=== PATIENT | female | born 1970 | race Caucasian/White ===

== ENCOUNTER → 2016-04-06 | Outpatient (CLI) | payer BC ==
[~2016-04-06] MED LIST: ALLEGRA-D 12 HO1 TER PO; AMOXICILLIN 8751 TAB PO; ASPIRIN 81M81 MG/TA2 PO; BRILINTA90 MG PO; CAL-CITRATE PLU1 TAB PO; CELEXA10 MG PO; CHANTIX 1MG1 MG PO; EFFEXOR XR75 MG/CAP PO; FISH OIL1000 MG PO; FLEXERIL5 MG PO; KLONOPIN 0.5MG0.5 MG PO; LAMICTAL 100MG100 MG PO; LIPITOR 40MG TA40 MG PO; LIPITOR 80MG80 MG PO; LOPRESSOR 225 MG/TAB PO; LOPRESSOR 550 MG/TAB PO; PAIN RELIEF AD200 MG PO; PRILOSEC 20MG20 MG PO; VITAMINC1000TA; WELLBUTRIN 75MG75 MG PO; WELLBUTRIN SR150 M1 PO
== END ==
LOC: BHSO 15:46
DX: F33.1 Major depressive disorder, recurrent, moderate (principal)

== ENCOUNTER → 2016-04-22 | Outpatient (CLI) | payer BC | LOC: BHSO 15:43 | DX: F33.2 Major depressive disorder, recurrent severe without psychotic features (principal) ==

== ENCOUNTER → 2016-05-05 | Outpatient (CLI) | payer BC | LOC: BHSO 16:14 | DX: F33.1 Major depressive disorder, recurrent, moderate (principal) ==

== ENCOUNTER → 2016-05-07 | Outpatient (CLI) | payer BC | LOC: BHSO 15:50 | DX: F33.2 Major depressive disorder, recurrent severe without psychotic features (principal) ==

== ENCOUNTER → 2016-05-21 | Outpatient (CLI) | payer BC | LOC: BHSO 15:55 | DX: F33.1 Major depressive disorder, recurrent, moderate (principal) ==

== ENCOUNTER → 2016-06-04 | Outpatient (CLI) | payer BC | LOC: BHSO 15:48 | DX: F33.2 Major depressive disorder, recurrent severe without psychotic features (principal) ==

== ENCOUNTER → 2016-06-18 | Outpatient (CLI) | payer BC | LOC: BHSO 15:52 | DX: F33.1 Major depressive disorder, recurrent, moderate (principal) ==

== ENCOUNTER → 2016-06-28 | Outpatient (CLI) | payer BC | LOC: BHSO 15:50 | DX: F33.1 Major depressive disorder, recurrent, moderate (principal) ==

== ENCOUNTER → 2016-07-02 | Outpatient (CLI) | payer BC | LOC: BHSO 15:52 | DX: F33.0 Major depressive disorder, recurrent, mild (principal) ==

== ENCOUNTER → 2016-07-16 | Outpatient (CLI) | payer BC | LOC: BHSO 15:51 | DX: F33.1 Major depressive disorder, recurrent, moderate (principal) ==

== ENCOUNTER → 2016-08-13 | Outpatient (CLI) | payer BC | LOC: BHSO 15:55 | DX: F33.1 Major depressive disorder, recurrent, moderate (principal) ==

== ENCOUNTER 2016-08-23 10:20 | Emergency (ER) | payer BC ==
[~2016-08-23] VITALS: Ht 160 cm; Wt 100.0 kg
[~2016-08-23 10:20] MED LIST changes: -AMOXICILLIN 8751 TAB PO; -LAMICTAL 100MG100 MG PO
[2016-08-23 10:31] VITALS: TEMP 98.3
[2016-08-23 11:01] LABS: BASO # 0.1 (0.0-0.2); BASO % 0.6 % (0.0-2.0); EOS # 0.2 (0.0-0.7); EOS % 1.4 % (0-4.0); GRAN # 10.8 (1.4-6.5); GRAN % 74.2 % (42.2-75.2); HEMATOCRIT 42.2 % (37.0-47.0); HEMOGLOBIN 14.1 g/dl (12.5-16.0); LYMPH # 2.9 (1.2-3.4); LYMPH % 19.7 % (20.0-51.0); MEAN CELL VOLUME 90 fl (80.0-100.0); MEAN CORPUSCULAR HEMOGLOBIN 30 pg (27.0-31.0); MEAN CORPUSCULAR HGB CONC 33 g/dl (33.0-37.0); MEAN PLATELET VOLUME 10.5 fl (7.4-10.4); MONO # 0.6 (0.1-0.6); MONO % 3.8 % (1.7-9.3); PLATELET COUNT 263 K/mm3 (130-400); RED BLOOD COUNT 4.67 M/mm3 (4.10-5.30); REDCELL DISTRIBUTION WIDTH-CV 13.2 % (11.5-14.5); WHITE BLOOD COUNT 14.6 K/mm3 (4.8-10.8)
[2016-08-23 11:17] LABS: ALANINE AMINOTRANSFERASE 29 U/L (9-52); ALBUMIN 3.8 gm/dL (3.5-5.0); ALKALINE PHOSPHATASE 92 U/L (50-136); ANION GAP 11 mmol/L (7-16); BILIRUBIN,TOTAL 0.5 mg/dL (0.0-1.0); BLOOD UREA NITROGEN 10 mg/dL (7-17); CALCIUM 8.8 mg/dL (8.4-10.2); CARBON DIOXIDE 25 mmol/L (22-30); CHLORIDE 102 mmol/L (98-107); CREATININE, serum 0.75 mg/dL (0.52-1.25); GLUCOSE 102 mg/dL (74-106); LIPASE 91 U/L (23-300); POTASSIUM 4.1 mmol/L (3.4-5.0); SODIUM 138 mmol/L (137-145)
[2016-08-23 11:39] LABS: TROPONIN-I < 0.012 ng/mL (0.000-0.034)
[2016-08-23 12:06] VITALS: BP 119/68; PULSE 90
== END 2016-08-23 12:08 | disposition home or self-care (01) ==
LOC: COL.ER 10:20
PROVIDERS: Emergency Medicine
DX: M25.512 Pain in left shoulder (principal); M79.602 Pain in left arm; I25.2 Old myocardial infarction; I25.10 Atherosclerotic heart disease of native coronary artery without angina pectoris; I11.9 Hypertensive heart disease without heart failure; F17.210 Nicotine dependence, cigarettes, uncomplicated; Z95.5 Presence of coronary angioplasty implant and graft; Z90.710 Acquired absence of both cervix and uterus

== ENCOUNTER 2016-09-22 10:30 | Emergency (ER) | payer OTHER, BC ==
[~2016-09-22] VITALS: Ht 157.5 cm; Wt 95.5 kg
[2016-09-22 10:33] VITALS: BP 101/63; TEMP 98.4
[2016-09-22] MEDS ORDERED: LAMICTAL 100MG100 MG PO (10:38)
[2016-09-22] MEDS ORDERED: AMOXICILLIN 8751 TAB PO (11:54)
[2016-09-22 12:55] VITALS: PULSE 84
== END 2016-09-22 12:56 | disposition home or self-care (01) ==
LOC: COL.ER 10:30
DX: S61.451A Open bite of right hand, initial encounter (principal); S63.91XA Sprain of unspecified part of right wrist and hand, initial encounter; W50.3XXA Accidental bite by another person, initial encounter; X50.9XXA Other and unspecified overexertion or strenuous movements or postures, initial encounter; Y92.129 Unspecified place in nursing home as the place of occurrence of the external cause; Z23 Encounter for immunization; I25.2 Old myocardial infarction; I25.10 Atherosclerotic heart disease of native coronary artery without angina pectoris; Z95.5 Presence of coronary angioplasty implant and graft; F17.210 Nicotine dependence, cigarettes, uncomplicated

== ENCOUNTER → 2016-09-27 | Outpatient (CLI) | payer BC ==
[~2016-09-27] MED LIST changes: +AMOXICILLIN 8751 TAB PO; +LAMICTAL 100MG100 MG PO
== END ==
LOC: BHSO 15:13
DX: F33.1 Major depressive disorder, recurrent, moderate (principal)

== ENCOUNTER → 2016-10-04 | Outpatient (CLI) | payer BC | LOC: MC.RAD 07:00 | DX: Z12.31 Encounter for screening mammogram for malignant neoplasm of breast (principal) ==

== ENCOUNTER 2016-10-06 09:31 | Outpatient (RCR) | payer OTHER | END 2016-12-07 12:54 | LOC: WSOH 09:31 | DX: S60.211A Contusion of right wrist, initial encounter (principal); S93.401A Sprain of unspecified ligament of right ankle, initial encounter; Y04.8XXA Assault by other bodily force, initial encounter; Y99.0 Civilian activity done for income or pay ==

== ENCOUNTER → 2016-10-29 | Outpatient (CLI) | payer OTHER | LOC: BHSO 15:59 | DX: F33.1 Major depressive disorder, recurrent, moderate (principal) ==

== ENCOUNTER → 2016-11-30 | Outpatient (CLI) | payer BC, OTHER | LOC: BHSO 15:55 | DX: F33.1 Major depressive disorder, recurrent, moderate (principal) ==

== ENCOUNTER → 2016-12-13 | Outpatient (CLI) | payer BC, OTHER | LOC: BHSO 16:02 | DX: F33.1 Major depressive disorder, recurrent, moderate (principal) ==

== ENCOUNTER → 2016-12-27 | Outpatient (CLI) | payer BC, OTHER | LOC: BHSO 16:00 | DX: F33.1 Major depressive disorder, recurrent, moderate (principal) ==

== ENCOUNTER → 2016-12-29 | Outpatient (CLI) | payer BC, OTHER | LOC: BHSO 15:24 | DX: F41.1 Generalized anxiety disorder (principal) ==

== ENCOUNTER → 2017-01-14 | Outpatient (CLI) | payer BC, OTHER | LOC: BHSO 16:00 | DX: F33.1 Major depressive disorder, recurrent, moderate (principal) ==

== ENCOUNTER → 2017-01-27 | Outpatient (CLI) | payer BC, OTHER | LOC: BHSO 16:02 | DX: F33.1 Major depressive disorder, recurrent, moderate (principal) ==

== ENCOUNTER → 2017-02-15 | Outpatient (CLI) | payer BC, OTHER | LOC: BHSO 15:23 | DX: F41.1 Generalized anxiety disorder (principal) ==

== ENCOUNTER → 2017-02-18 | Outpatient (CLI) | payer BC, OTHER | LOC: BHSO 16:03 | DX: F33.1 Major depressive disorder, recurrent, moderate (principal) ==

== ENCOUNTER → 2017-03-08 | Outpatient (CLI) | payer BC, OTHER | LOC: BHSO 16:01 | DX: F33.1 Major depressive disorder, recurrent, moderate (principal) ==

== ENCOUNTER → 2017-03-21 | Outpatient (CLI) | payer BC, OTHER | LOC: BHSO 16:00 | DX: F33.1 Major depressive disorder, recurrent, moderate (principal) ==

== ENCOUNTER → 2017-04-06 | Outpatient (CLI) | payer BC, OTHER | LOC: BHSO 16:02 | DX: F33.1 Major depressive disorder, recurrent, moderate (principal) ==

== ENCOUNTER 2017-04-13 12:12 | Emergency (ER) | payer BC ==
[~2017-04-13] VITALS: Ht 160 cm; Wt 95.5 kg
[2017-04-13 12:21] VITALS: TEMP 97.9
[2017-04-13 16:32] LABS: BASO # 0.1 (0.0-0.2); BASO % 0.7 % (0.0-2.0); EOS # 0.3 (0.0-0.7); EOS % 2.1 % (0-4.0); GRAN # 7.3 (1.4-6.5); GRAN % 59.3 % (42.2-75.2); HEMATOCRIT 44.4 % (37.0-47.0); HEMOGLOBIN 14.6 g/dl (12.5-16.0); LYMPH # 4.1 (1.2-3.4); LYMPH % 33.1 % (20.0-51.0); MEAN CELL VOLUME 91 fl (80.0-100.0); MEAN CORPUSCULAR HEMOGLOBIN 30 pg (27.0-31.0); MEAN CORPUSCULAR HGB CONC 33 g/dl (33.0-37.0); MEAN PLATELET VOLUME 10.1 fl (7.4-10.4); MONO # 0.6 (0.1-0.6); MONO % 4.6 % (1.7-9.3); PLATELET COUNT 298 K/mm3 (130-400); RED BLOOD COUNT 4.88 M/mm3 (4.10-5.30); REDCELL DISTRIBUTION WIDTH-CV 13.2 % (11.5-14.5)
[2017-04-13 16:44] LABS: BILIRUBIN,TOTAL 0.3 mg/dL (0.0-1.0); C-REACTIVE PROTEIN 1.4 mg/dL (0.0-0.9); CALCIUM 9.2 mg/dL (8.4-10.2); CREATININE, serum 0.77 mg/dL (0.52-1.25); TOTAL PROTEIN 7.3 gm/dL (6.4-8.2)
[2017-04-13 16:53] LABS: TROPONIN-I 0.017 ng/mL (0.000-0.034)
[2017-04-13 20:40] VITALS: BP 116/81; PULSE 73
== END 2017-04-13 20:46 | disposition home or self-care (01) ==
LOC: COL.ER 12:12
PROVIDERS: Physician Assistant
DX: M79.602 Pain in left arm (principal); E78.5 Hyperlipidemia, unspecified; I50.9 Heart failure, unspecified; I25.2 Old myocardial infarction; F17.210 Nicotine dependence, cigarettes, uncomplicated; Z95.5 Presence of coronary angioplasty implant and graft; Z79.82 Long term (current) use of aspirin

== ENCOUNTER → 2017-04-29 | Outpatient (CLI) | payer BC | LOC: BHSO 16:02 | DX: F33.1 Major depressive disorder, recurrent, moderate (principal) ==

== ENCOUNTER → 2017-05-13 | Outpatient (CLI) | payer BC | LOC: BHSO 16:08 | DX: F33.1 Major depressive disorder, recurrent, moderate (principal) ==

== ENCOUNTER → 2017-05-20 | Outpatient (CLI) | payer BC | LOC: BHSO 16:04 | DX: F31.81 Bipolar II disorder (principal) | CPT/HCPCS: G0463 ==

== ENCOUNTER → 2017-05-27 | Outpatient (CLI) | payer BC | LOC: BHSO 16:03 | DX: F33.0 Major depressive disorder, recurrent, mild (principal) ==

== ENCOUNTER → 2017-07-01 | Outpatient (CLI) | payer BC | LOC: BHSO 15:59 | DX: F33.1 Major depressive disorder, recurrent, moderate (principal) ==

== ENCOUNTER → 2017-07-15 | Outpatient (CLI) | payer BC | LOC: BHSO 16:00 | DX: F33.1 Major depressive disorder, recurrent, moderate (principal) ==

== ENCOUNTER → 2017-07-26 | Outpatient (CLI) | payer BC | LOC: BHSO 15:59 | DX: F31.81 Bipolar II disorder (principal) | CPT/HCPCS: G0463 ==

== ENCOUNTER → 2017-08-12 | Outpatient (CLI) | payer BC | LOC: BHSO 16:03 | DX: F33.1 Major depressive disorder, recurrent, moderate (principal) ==

== ENCOUNTER → 2017-09-09 | Outpatient (CLI) | payer BC | LOC: BHSO 15:56 | DX: F33.1 Major depressive disorder, recurrent, moderate (principal) ==

== ENCOUNTER → 2017-10-07 | Outpatient (CLI) | payer BC | LOC: BHSO 15:57 | DX: F33.1 Major depressive disorder, recurrent, moderate (principal) ==

== ENCOUNTER → 2017-10-21 | Outpatient (CLI) | payer BC | LOC: BHSO 15:44 | DX: F41.1 Generalized anxiety disorder (principal) ==

== ENCOUNTER → 2017-10-25 | Outpatient (CLI) | payer BC | LOC: BHSO 16:20 | DX: F31.81 Bipolar II disorder (principal) ==

== ENCOUNTER → 2017-11-04 | Outpatient (CLI) | payer BC | LOC: BHSO 16:03 | DX: F41.1 Generalized anxiety disorder (principal) ==

== ENCOUNTER → 2017-11-18 | Outpatient (CLI) | payer BC | LOC: BHSO 16:18 | DX: F33.0 Major depressive disorder, recurrent, mild (principal) ==

== ENCOUNTER → 2017-12-02 | Outpatient (CLI) | payer BC | LOC: BHSO 15:50 | DX: F33.0 Major depressive disorder, recurrent, mild (principal) ==

== ENCOUNTER → 2017-12-16 | Outpatient (CLI) | payer BC | LOC: BHSO 15:59 | DX: F41.1 Generalized anxiety disorder (principal) ==

== ENCOUNTER → 2017-12-30 | Outpatient (CLI) | payer BC | LOC: BHSO 15:59 | DX: F33.1 Major depressive disorder, recurrent, moderate (principal) ==

== ENCOUNTER → 2018-01-12 | Outpatient (CLI) | payer BC | LOC: BHSO 16:00 | DX: F33.0 Major depressive disorder, recurrent, mild (principal) ==

== ENCOUNTER → 2018-01-27 | Outpatient (CLI) | payer BC | LOC: BHSO 16:03 | DX: F33.0 Major depressive disorder, recurrent, mild (principal) ==

== ENCOUNTER → 2018-02-07 | Outpatient (CLI) | payer BC | LOC: MC.RAD 13:19 | DX: N64.89 Other specified disorders of breast (principal); N63.10 Unspecified lump in the right breast, unspecified quadrant | CPT/HCPCS: G0279 ==

== ENCOUNTER → 2018-02-13 | Outpatient (CLI) | payer BC | LOC: MC.RAD 07:00 | DX: N61.1 Abscess of the breast and nipple (principal) ==

== ENCOUNTER → 2018-02-16 | Outpatient (CLI) | payer BC | LOC: BHSO 15:53 | DX: F33.1 Major depressive disorder, recurrent, moderate (principal) ==

== ENCOUNTER → 2018-04-12 | Outpatient (CLI) | payer BC | LOC: BHSO 16:02 | DX: F33.1 Major depressive disorder, recurrent, moderate (principal) ==

== ENCOUNTER → 2018-04-28 | Outpatient (CLI) | payer BC | LOC: BHSO 16:03 | DX: F33.1 Major depressive disorder, recurrent, moderate (principal) ==

== ENCOUNTER → 2018-05-12 | Outpatient (CLI) | payer BC | LOC: BHSO 15:58 | DX: F33.1 Major depressive disorder, recurrent, moderate (principal) ==

== ENCOUNTER → 2018-05-16 | Outpatient (CLI) | payer BC | LOC: BHSO 16:18 | DX: F33.1 Major depressive disorder, recurrent, moderate (principal) | CPT/HCPCS: G0463 ==

== ENCOUNTER → 2018-06-29 | Outpatient (CLI) | payer BC | LOC: BHSO 16:19 | DX: F31.81 Bipolar II disorder (principal) | CPT/HCPCS: G0463 ==

== ENCOUNTER → 2018-06-30 | Outpatient (CLI) | payer BC | LOC: BHSO 15:58 | DX: F33.1 Major depressive disorder, recurrent, moderate (principal) ==

== ENCOUNTER → 2018-07-19 | Outpatient (CLI) | payer BC | LOC: BHSO 16:03 | DX: F33.1 Major depressive disorder, recurrent, moderate (principal) ==

== ENCOUNTER → 2018-08-03 | Outpatient (CLI) | payer BC | LOC: BHSO 10:50 | DX: F33.1 Major depressive disorder, recurrent, moderate (principal) ==

== ENCOUNTER → 2018-08-18 | Outpatient (CLI) | payer BC | LOC: BHSO 16:00 | DX: F33.1 Major depressive disorder, recurrent, moderate (principal) ==

== ENCOUNTER → 2018-09-01 | Outpatient (CLI) | payer BC | LOC: BHSO 16:01 | DX: F33.1 Major depressive disorder, recurrent, moderate (principal) ==

== ENCOUNTER → 2018-09-27 | Outpatient (CLI) | payer BC | LOC: BHSO 09:39 | DX: F31.81 Bipolar II disorder (principal) | CPT/HCPCS: G0463 ==

== ENCOUNTER → 2018-09-29 | Outpatient (CLI) | payer BC | LOC: BHSO 13:02 | DX: F33.2 Major depressive disorder, recurrent severe without psychotic features (principal) ==

== ENCOUNTER → 2018-10-11 | Outpatient (CLI) | payer BC | LOC: BHSO 13:13 | DX: F33.2 Major depressive disorder, recurrent severe without psychotic features (principal) ==

== ENCOUNTER → 2018-10-27 | Outpatient (CLI) | payer BC | LOC: BHSO 15:57 | DX: F33.1 Major depressive disorder, recurrent, moderate (principal) ==

== ENCOUNTER → 2018-11-10 | Outpatient (CLI) | payer BC | LOC: BHSO 16:01 | DX: F33.1 Major depressive disorder, recurrent, moderate (principal) ==

== ENCOUNTER → 2018-11-29 | Outpatient (CLI) | payer BC | LOC: BHSO 12:59 | DX: F31.81 Bipolar II disorder (principal) | CPT/HCPCS: G0463 ==

== ENCOUNTER → 2018-12-11 | Outpatient (CLI) | payer BC | LOC: BHSO 13:02 | DX: F33.2 Major depressive disorder, recurrent severe without psychotic features (principal) ==

== ENCOUNTER → 2018-12-26 | Outpatient (CLI) | payer BC | LOC: BHSO 12:59 | DX: F33.1 Major depressive disorder, recurrent, moderate (principal) ==

== ENCOUNTER 2018-12-29 18:32 | Emergency (ER) | payer BC ==
[~2018-12-29] VITALS: Ht 157.5 cm; Wt 95.9 kg
[2018-12-29 18:37] VITALS: TEMP 98.2
[2018-12-29 18:54] LABS: BASO # 0.1 (0.0-0.2); BASO % 0.5 % (0.0-2.0); EOS # 0.3 (0.0-0.7); EOS % 2.3 % (0-4.0); GRAN # 8.7 (1.4-6.5); GRAN % 59.2 % (42.2-75.2); HEMATOCRIT 44.2 % (37.0-47.0); HEMOGLOBIN 14.6 g/dl (12.5-16.0); LYMPH # 4.6 (1.2-3.4); LYMPH % 31.2 % (20.0-51.0); MEAN CELL VOLUME 92 fl (80.0-100.0); MEAN CORPUSCULAR HEMOGLOBIN 31 pg (27.0-31.0); MEAN CORPUSCULAR HGB CONC 33 g/dl (33.0-37.0); MEAN PLATELET VOLUME 10.4 fl (7.4-10.4); MONO % 6.5 % (1.7-9.3); PLATELET COUNT 284 K/mm3 (130-400); RED BLOOD COUNT 4.79 M/mm3 (4.10-5.30); REDCELL DISTRIBUTION WIDTH-CV 13.1 % (11.5-14.5)
[2018-12-29 19:01] LABS: INR 0.9 (0.8-3.0); PROTHROMBIN TIME 10.2 SECONDS (9.7-12.8)
[2018-12-29 19:06] LABS: ALANINE AMINOTRANSFERASE 13 U/L (9-52); ALBUMIN 4.1 gm/dL (3.5-5.0); ALKALINE PHOSPHATASE 102 U/L (50-136); ANION GAP 10 mmol/L (7-16); AST,SGOT 20 U/L (15-37); BILIRUBIN,TOTAL 0.2 mg/dL (0.0-1.0); BLOOD UREA NITROGEN 9 mg/dL (7-17); CALCIUM 9.1 mg/dL (8.4-10.2); CARBON DIOXIDE 26 mmol/L (22-30); CHLORIDE 102 mmol/L (98-107); CREATININE, serum 0.76 (0.52-1.25); GLUCOSE 83 mg/dL (74-106); LIPASE 68 U/L (23-300); SODIUM 139 mmol/L (137-145); TOTAL PROTEIN 7.3 gm/dL (6.4-8.2)
[2018-12-29 19:20] LABS: TROPONIN-I < 0.012 ng/mL (0.000-0.035)
[2018-12-29 22:30] VITALS: BP 124/79; PULSE 78
== END 2018-12-29 22:45 | disposition home or self-care (01) ==
LOC: COL.ER 18:32
PROVIDERS: Emergency Medicine
DX: I25.10 Atherosclerotic heart disease of native coronary artery without angina pectoris (principal); R07.89 Other chest pain; M54.6 Pain in thoracic spine; Z79.82 Long term (current) use of aspirin
CPT/HCPCS: J7030

== ENCOUNTER → 2019-01-31 | Outpatient (CLI) | payer BC | LOC: BHSO 16:01 | DX: F33.1 Major depressive disorder, recurrent, moderate (principal) ==

== ENCOUNTER 2019-03-07 10:06 | Emergency (ER) | payer SELFPAY ==
[~2019-03-07] VITALS: Ht 160 cm; Wt 102.3 kg
[2019-03-07 10:14] VITALS: BP 119/68; TEMP 97.1
[2019-03-07 11:05] VITALS: PULSE 74
== END 2019-03-07 11:05 | disposition home or self-care (01) ==
LOC: COL.ER 10:06
DX: S96.912A Strain of unspecified muscle and tendon at ankle and foot level, left foot, initial encounter (principal); I25.10 Atherosclerotic heart disease of native coronary artery without angina pectoris; J45.909 Unspecified asthma, uncomplicated; Z79.82 Long term (current) use of aspirin; W10.8XXA Fall (on) (from) other stairs and steps, initial encounter

== ENCOUNTER → 2019-04-26 | Outpatient (CLI) | payer BC | LOC: MC.RAD 15:38 | DX: Z12.31 Encounter for screening mammogram for malignant neoplasm of breast (principal) ==

== ENCOUNTER → 2019-04-27 | Outpatient (CLI) | payer BC | LOC: BHSO 16:00 | DX: F33.1 Major depressive disorder, recurrent, moderate (principal) ==

== ENCOUNTER → 2019-05-11 | Outpatient (CLI) | payer BC | LOC: BHSO 14:55 | DX: F33.1 Major depressive disorder, recurrent, moderate (principal) ==

== ENCOUNTER → 2019-07-20 | Outpatient (CLI) | payer BC | LOC: BHSO 15:56 | DX: F33.1 Major depressive disorder, recurrent, moderate (principal) ==

== ENCOUNTER → 2019-08-03 | Outpatient (CLI) | payer BC | LOC: BHSO 16:01 | DX: F33.1 Major depressive disorder, recurrent, moderate (principal) ==

== ENCOUNTER → 2019-08-17 | Outpatient (CLI) | payer BC | LOC: BHSO 16:00 | DX: F33.1 Major depressive disorder, recurrent, moderate (principal) ==

== ENCOUNTER → 2019-08-30 | Outpatient (CLI) | payer BC | LOC: BHSO 16:11 | DX: F33.1 Major depressive disorder, recurrent, moderate (principal) ==

== ENCOUNTER → 2019-09-11 | Outpatient (CLI) | payer BC | LOC: BHSO 16:15 | DX: F41.1 Generalized anxiety disorder (principal) | CPT/HCPCS: G0463 ==

== ENCOUNTER → 2019-09-14 | Outpatient (CLI) | payer BC | LOC: BHSO 16:01 | DX: F33.1 Major depressive disorder, recurrent, moderate (principal) ==

== ENCOUNTER → 2019-10-10 | Outpatient (CLI) | payer BC ==
[2019-10-10 16:03] LABS: BASO # 0.1 (0.0-0.2); BASO % 0.8 % (0.0-2.0); EOS # 0.2 (0.0-0.7); EOS % 1.4 % (0-4.0); GRAN # 7.3 (1.4-6.5); GRAN % 64.4 % (42.2-75.2); HEMATOCRIT 40.8 % (37.0-47.0); LYMPH # 3.2 (1.2-3.4); LYMPH % 27.8 % (20.0-51.0); MEAN CELL VOLUME 90 fl (80.0-100.0); MEAN CORPUSCULAR HEMOGLOBIN 31 pg (27.0-31.0); MEAN CORPUSCULAR HGB CONC 34 g/dl (33.0-37.0); MEAN PLATELET VOLUME 10.3 fl (7.4-10.4); MONO # 0.6 (0.1-0.6); MONO % 5.3 % (1.7-9.3); PLATELET COUNT 242 K/mm3 (130-400); RED BLOOD COUNT 4.52 M/mm3 (4.10-5.30); REDCELL DISTRIBUTION WIDTH-CV 14.2 % (11.5-14.5)
[2019-10-10 16:11] LABS: ALBUMIN 3.7 gm/dL (3.5-5.0); BILIRUBIN,TOTAL 0.3 mg/dL (0.0-1.0); CALCIUM 8.9 mg/dL (8.4-10.2); CREATININE, serum 0.81 (0.52-1.25); POTASSIUM 3.9 mmol/L (3.4-5.0); TOTAL PROTEIN 6.7 gm/dL (6.4-8.2)
== END ==
LOC: COL.RAD 15:09 → COL.LAB 15:09 → COL.RAD 15:30
PROVIDERS: Nurse Practitioner Family
DX: N20.0 Calculus of kidney (principal)
CPT/HCPCS: Q9967

== ENCOUNTER → 2019-10-12 | Outpatient (CLI) | payer BC | LOC: BHSO 15:59 | DX: F33.1 Major depressive disorder, recurrent, moderate (principal) ==

== ENCOUNTER 2019-10-22 09:51 | Emergency (ER) | payer BC ==
[~2019-10-22] VITALS: Ht 160 cm; Wt 86.8 kg
[2019-10-22 10:05] VITALS: TEMP 98.6
[2019-10-22 10:20] LABS: COLLECTION METHOD CLEAN CATCH
[2019-10-22 10:26] LABS: BASO # 0.1 (0.0-0.2); BASO % 0.6 % (0.0-2.0); EOS # 0.1 (0.0-0.7); EOS % 0.8 % (0-4.0); GRAN # 11.7 (1.4-6.5); GRAN % 74.2 % (42.2-75.2); HEMATOCRIT 47.1 % (37.0-47.0); HEMOGLOBIN 15.6 g/dl (12.5-16.0); LYMPH # 3.1 (1.2-3.4); LYMPH % 19.5 % (20.0-51.0); MEAN CELL VOLUME 91 fl (80.0-100.0); MEAN CORPUSCULAR HEMOGLOBIN 30 pg (27.0-31.0); MEAN CORPUSCULAR HGB CONC 33 g/dl (33.0-37.0); MEAN PLATELET VOLUME 10.5 fl (7.4-10.4); MONO # 0.7 (0.1-0.6); MONO % 4.5 % (1.7-9.3); PLATELET COUNT 307 K/mm3 (130-400); RED BLOOD COUNT 5.16 M/mm3 (4.10-5.30); REDCELL DISTRIBUTION WIDTH-CV 14.5 % (11.5-14.5)
[2019-10-22 10:28] LABS: PH 7 (5-8); SQUAMOUS EPITHELIAL 0-2 /hpf; URINE APPEARANCE Clear; URINE BACTERIA None Seen /hpf; URINE BILIRUBIN Negative (NEGATIVE); URINE BLOOD Negative (NEGATIVE); URINE COLOR Yellow; URINE GLUCOSE Negative (NEGATIVE); URINE KETONE Negative (NEGATIVE); URINE LEUKOCYTE ESTERASE Negative (NEGATIVE); URINE NITRATE Negative (NEGATIVE); URINE PROTEIN(semi-quant) Negative (NEGATIVE); URINE RBC 0-2 /hpf; URINE UROBILINOGEN Negative (NEGATIVE)
[2019-10-22 10:37] LABS: ALBUMIN 4.1 gm/dL (3.5-5.0); BILIRUBIN,TOTAL 0.4 mg/dL (0.0-1.0); C-REACTIVE PROTEIN 2.3 mg/dL (0.0-0.9); CALCIUM 9.4 mg/dL (8.4-10.2); CREATININE, serum 0.69 (0.52-1.25); POTASSIUM 4.2 mmol/L (3.4-5.0); TOTAL PROTEIN 7.5 gm/dL (6.4-8.2)
[2019-10-22] MEDS ORDERED: WOMEN'S DAILY1 TAB PO (11:01)
[2019-10-22] MEDS ORDERED: NORCO 325 MG-51 TAB PO (12:35)
[2019-10-22 12:51] VITALS: BP 121/72; PULSE 63
== END 2019-10-22 12:51 | disposition home or self-care (01) ==
LOC: COL.ER 09:51
PROVIDERS: Emergency Medicine
DX: R10.31 Right lower quadrant pain (principal); Z79.82 Long term (current) use of aspirin; Z90.710 Acquired absence of both cervix and uterus
CPT/HCPCS: J1885; J2550; J7030; Q9967

== ENCOUNTER → 2019-11-08 | Outpatient (CLI) | payer BC ==
[~2019-11-08] MED LIST changes: +NORCO 325 MG-51 TAB PO; +WOMEN'S DAILY1 TAB PO
== END ==
LOC: BHSO 16:20
DX: F31.81 Bipolar II disorder (principal)
CPT/HCPCS: G0463

== ENCOUNTER → 2019-11-09 | Outpatient (CLI) | payer BC | LOC: BHSO 15:57 | DX: F33.2 Major depressive disorder, recurrent severe without psychotic features (principal) ==

== ENCOUNTER 2019-11-18 10:51 | Emergency (ER) | payer BC ==
[~2019-11-18] VITALS: Ht 160 cm; Wt 84.5 kg
[2019-11-18 10:57] VITALS: TEMP 98.1
[2019-11-18] MEDS ORDERED: ATIVAN 0.50.5 MG/TAB PO (11:09)
[2019-11-18] MEDS ORDERED: ABILIFY5 MG PO (11:09)
[2019-11-18] MEDS ORDERED: ASPIRIN E.C. 8181 MG PO (11:09)
[2019-11-18] MEDS ORDERED: PRISTIQ100 MG PO (11:09)
[2019-11-18 11:19] LABS: HEMATOCRIT 43.5 % (37.0-47.0); HEMOGLOBIN 14.8 g/dl (12.5-16.0); MEAN CELL VOLUME 90 fl (80.0-100.0); MEAN CORPUSCULAR HEMOGLOBIN 31 pg (27.0-31.0); MEAN CORPUSCULAR HGB CONC 34 g/dl (33.0-37.0); MEAN PLATELET VOLUME 10.2 fl (7.4-10.4); PLATELET COUNT 263 K/mm3 (130-400); RED BLOOD COUNT 4.84 M/mm3 (4.10-5.30); REDCELL DISTRIBUTION WIDTH-CV 13.8 % (11.5-14.5)
[2019-11-18 11:28] LABS: ALANINE AMINOTRANSFERASE 22 U/L (4-34); ALKALINE PHOSPHATASE 104 U/L (50-136); ANION GAP 7 mmol/L (7-16); AST,SGOT 26 U/L (15-37); BILIRUBIN,TOTAL 0.4 mg/dL (0.0-1.0); BLOOD UREA NITROGEN 11 mg/dL (7-17); CALCIUM 9.4 mg/dL (8.4-10.2); CARBON DIOXIDE 23 mmol/L (22-30); CHLORIDE 105 mmol/L (98-107); CREATININE, serum 0.65 (0.52-1.25); GLUCOSE 111 mg/dL (74-106); LIPASE 131 U/L (23-300); POTASSIUM 4.2 mmol/L (3.4-5.0); SODIUM 135 mmol/L (137-145); TOTAL PROTEIN 7.2 gm/dL (6.4-8.2)
[2019-11-18 11:33] LABS: INR 1.1 (0.8-3.0); PROTHROMBIN TIME 11.8 SECONDS (9.7-12.8)
[2019-11-18 11:40] LABS: TROPONIN-I < 0.012 ng/mL (0.000-0.035)
[2019-11-18] MEDS ORDERED: NITROSTAT0.4 MG/TAB SL (11:44)
[2019-11-18 12:51] LABS: EOSINOPHIL 5 % (0-4); NEUTROPHILS 57 % (42.0-75.2)
[2019-11-18 12:52] LABS: PLATELET ESTIMATE NORMAL (NORMAL)
[2019-11-18 12:53] LABS: LYMPHOCYTE 34 % (20.0-51.0)
[2019-11-18 14:58] VITALS: BP 141/82; PULSE 68
== END 2019-11-18 14:59 | disposition home or self-care (01) ==
LOC: COL.ER 10:51
PROVIDERS: Emergency Medicine
DX: R07.89 Other chest pain (principal); F17.210 Nicotine dependence, cigarettes, uncomplicated; I25.2 Old myocardial infarction; Z79.82 Long term (current) use of aspirin; Z82.49 Family history of ischemic heart disease and other diseases of the circulatory system; Z90.710 Acquired absence of both cervix and uterus; Z95.5 Presence of coronary angioplasty implant and graft
CPT/HCPCS: J7030

== ENCOUNTER → 2019-11-23 | Outpatient (CLI) | payer BC ==
[~2019-11-23] MED LIST changes: +ABILIFY5 MG PO; +ASPIRIN E.C. 8181 MG PO; +ATIVAN 0.50.5 MG/TAB PO; +NITROSTAT0.4 MG/TAB SL; +PRISTIQ100 MG PO
== END ==
LOC: BHSO 16:01
DX: F33.2 Major depressive disorder, recurrent severe without psychotic features (principal)

== ENCOUNTER → 2019-12-07 | Outpatient (CLI) | payer BC | LOC: BHSO 16:50 → BHSTELE 16:50 | DX: F33.2 Major depressive disorder, recurrent severe without psychotic features (principal) ==

== ENCOUNTER → 2019-12-21 | Outpatient (CLI) | payer BC | LOC: BHSO 16:00 | DX: F33.1 Major depressive disorder, recurrent, moderate (principal) ==

== ENCOUNTER → 2020-01-18 | Outpatient (CLI) | payer BC | LOC: BHSO 16:02 | DX: F33.1 Major depressive disorder, recurrent, moderate (principal) ==

== ENCOUNTER 2020-04-30 10:03 | Emergency (ER) | payer BC ==
[~2020-04-30] VITALS: Ht 160 cm; Wt 85.9 kg
[2020-04-30 10:07] VITALS: TEMP 97.5
[2020-04-30] MEDS ORDERED: FLEXERIL 1010 MG/TAB PO (11:18)
[2020-04-30] MEDS ORDERED: NAPROSYN 2250 MG/TAB PO (11:18)
[2020-04-30 11:32] VITALS: BP 146/95; PULSE 64
== END 2020-04-30 11:34 | disposition home or self-care (01) ==
LOC: COL.ER 10:03
DX: S46.912A Strain of unspecified muscle, fascia and tendon at shoulder and upper arm level, left arm, initial encounter (principal); M79.602 Pain in left arm; K21.9 Gastro-esophageal reflux disease without esophagitis; F31.9 Bipolar disorder, unspecified; I25.2 Old myocardial infarction; I25.10 Atherosclerotic heart disease of native coronary artery without angina pectoris; F17.200 Nicotine dependence, unspecified, uncomplicated; Z90.710 Acquired absence of both cervix and uterus; Z95.5 Presence of coronary angioplasty implant and graft; Z91.048 Other nonmedicinal substance allergy status; Z79.82 Long term (current) use of aspirin; X50.1XXA Overexertion from prolonged static or awkward postures, initial encounter
CPT/HCPCS: J1885; J3360

== ENCOUNTER 2020-06-10 10:44 | Emergency (ER) | payer BC ==
[~2020-06-10] VITALS: Ht 160 cm; Wt 86.4 kg
[~2020-06-10 10:44] MED LIST changes: +FLEXERIL 1010 MG/TAB PO; +NAPROSYN 2250 MG/TAB PO
[2020-06-10 11:27] LABS: BASO # 0.1 (0.0-0.2); BASO % 0.5 % (0.0-2.0); EOS # 0.2 (0.0-0.7); EOS % 1.5 % (0-4.0); GRAN # 9.1 (1.4-6.5); GRAN % 70.1 % (42.2-75.2); HEMATOCRIT 41.8 % (37.0-47.0); HEMOGLOBIN 14.2 g/dl (12.5-16.0); LYMPH # 2.9 (1.2-3.4); LYMPH % 22.7 % (20.0-51.0); MEAN CELL VOLUME 92 fl (80.0-100.0); MEAN CORPUSCULAR HEMOGLOBIN 31 pg (27.0-31.0); MEAN CORPUSCULAR HGB CONC 34 g/dl (33.0-37.0); MEAN PLATELET VOLUME 10.2 fl (7.4-10.4); MONO # 0.6 (0.1-0.6); MONO % 4.9 % (1.7-9.3); PLATELET COUNT 225 K/mm3 (130-400); RED BLOOD COUNT 4.56 M/mm3 (4.10-5.30)
[2020-06-10 11:38] LABS: ALANINE AMINOTRANSFERASE 17 U/L (4-34); ALBUMIN 3.8 gm/dL (3.5-5.0); ALKALINE PHOSPHATASE 78 U/L (50-136); ANION GAP 5 mmol/L (7-16); AST,SGOT 25 U/L (15-37); BILIRUBIN,TOTAL 0.4 mg/dL (0.0-1.0); BLOOD UREA NITROGEN 14 mg/dL (7-17); CALCIUM 8.6 mg/dL (8.4-10.2); CARBON DIOXIDE 26 mmol/L (22-30); CHLORIDE 103 mmol/L (98-107); CREATININE, serum 0.64 (0.52-1.25); GLUCOSE 92 mg/dL (74-106); POTASSIUM 4.2 mmol/L (3.4-5.0); SODIUM 134 mmol/L (137-145); TOTAL PROTEIN 6.7 gm/dL (6.4-8.2)
[2020-06-10 11:49] LABS: D-DIMER < 200.00 ng/mLDDu (200-230); PROTHROMBIN TIME 11.5 SECONDS (9.7-12.8)
[2020-06-10 11:51] LABS: TROPONIN-I < 0.012 ng/mL (0.000-0.035)
[2020-06-10 14:29] LABS: COLLECTION METHOD CLEAN CATCH
[2020-06-10 14:39] LABS: PH 7 (5-8); SQUAMOUS EPITHELIAL 0-2 /hpf; URINE APPEARANCE Clear; URINE BACTERIA None Seen /hpf; URINE BILIRUBIN Negative (NEGATIVE); URINE BLOOD Negative (NEGATIVE); URINE COLOR Straw; URINE GLUCOSE Negative (NEGATIVE); URINE KETONE Negative (NEGATIVE); URINE LEUKOCYTE ESTERASE Negative (NEGATIVE); URINE NITRATE Negative (NEGATIVE); URINE PROTEIN(semi-quant) Negative (NEGATIVE); URINE RBC 0-2 /hpf; URINE UROBILINOGEN Negative (NEGATIVE); URINE WBC 0-2 /hpf
[2020-06-10 14:59] VITALS: BP 153/85; PULSE 62; TEMP 97.9
[2020-11-14] MEDS ORDERED: BRINTELLIX10 (19:41)
[2020-11-19] MEDS ORDERED: DIFLUCAN 40M40 MG/ML PO (14:32)
[2020-11-19] MEDS ORDERED: NEURONTIN100 MG/CAP PO (14:34)
[2020-11-19] MEDS ORDERED: NORCO 325 MG-51 TAB PO (14:34)
[2020-11-19] MEDS ORDERED: AMOXICILLIN 8751 TAB PO (14:35)
[2020-11-27] MEDS ORDERED: BACTRIM DS 8001 TAB PO (21:25)
== END 2020-06-10 15:05 | disposition home or self-care (01) ==
LOC: COL.ER 10:44
PROVIDERS: Nurse Practitioner Primary Care
DX: R07.89 Other chest pain (principal); J45.909 Unspecified asthma, uncomplicated; F31.9 Bipolar disorder, unspecified; I25.10 Atherosclerotic heart disease of native coronary artery without angina pectoris; F17.210 Nicotine dependence, cigarettes, uncomplicated; Z95.9 Presence of cardiac and vascular implant and graft, unspecified; Z79.82 Long term (current) use of aspirin
CPT/HCPCS: J1885

== ENCOUNTER 2020-06-12 08:36 | Observation (INO) | payer BC ==
[2020-06-12] VITALS (12 sets, daily range): BP systolic 117–153; BP diastolic 52–99; PULSE 55–93; TEMP 97.6–98.6
[~2020-06-12] VITALS: Ht 160 cm; Wt 86.4 kg
[2020-06-12 09:01] LABS: BASO % 0.2 % (0.0-2.0); EOS % 0.1 % (0-4.0); GRAN # 15.4 (1.4-6.5); GRAN % 86.6 % (42.2-75.2); HEMOGLOBIN 15.7 g/dl (12.5-16.0); LYMPH # 1.6 (1.2-3.4); LYMPH % 9.2 % (20.0-51.0); MEAN CELL VOLUME 93 fl (80.0-100.0); MEAN CORPUSCULAR HEMOGLOBIN 31 pg (27.0-31.0); MEAN CORPUSCULAR HGB CONC 33 g/dl (33.0-37.0); MEAN PLATELET VOLUME 10.3 fl (7.4-10.4); MONO # 0.6 (0.1-0.6); MONO % 3.4 % (1.7-9.3); PLATELET COUNT 257 K/mm3 (130-400); RED BLOOD COUNT 5.05 M/mm3 (4.10-5.30); REDCELL DISTRIBUTION WIDTH-CV 12.9 % (11.5-14.5)
[2020-06-12 09:10] LABS: ALANINE AMINOTRANSFERASE 17 U/L (4-34); ALBUMIN 4.1 gm/dL (3.5-5.0); ALKALINE PHOSPHATASE 74 U/L (50-136); ANION GAP 7 mmol/L (7-16); AST,SGOT 22 U/L (15-37); BILIRUBIN,TOTAL 0.3 mg/dL (0.0-1.0); BLOOD UREA NITROGEN 16 mg/dL (7-17); CALCIUM 9.2 mg/dL (8.4-10.2); CARBON DIOXIDE 25 mmol/L (22-30); CHLORIDE 104 mmol/L (98-107); CREATININE, serum 0.69 (0.52-1.25); GLUCOSE 121 mg/dL (74-106); POTASSIUM 4.7 mmol/L (3.4-5.0); SODIUM 136 mmol/L (137-145); TOTAL PROTEIN 7.3 gm/dL (6.4-8.2)
[2020-06-12 09:13] LABS: INR 1.1 (0.8-3.0)
[2020-06-12 09:15] LABS: PARTIAL THROMBOPLASTIN TIME 38.9 SECONDS (26.0-37.0)
[2020-06-12 09:26] LABS: TROPONIN-I < 0.012 ng/mL (0.000-0.035)
[2020-06-12 10:04] LABS: COLLECTION METHOD CLEAN CATCH
[2020-06-12 10:09] LABS: PH 7 (5-8); SQUAMOUS EPITHELIAL 0-2 /hpf; URINE APPEARANCE Clear; URINE BACTERIA None Seen /hpf; URINE BILIRUBIN Negative (NEGATIVE); URINE BLOOD Negative (NEGATIVE); URINE COLOR Straw; URINE GLUCOSE Negative (NEGATIVE); URINE KETONE Negative (NEGATIVE); URINE LEUKOCYTE ESTERASE Negative (NEGATIVE); URINE NITRATE Negative (NEGATIVE); URINE PROTEIN(semi-quant) Negative (NEGATIVE); URINE RBC 0-2 /hpf; URINE UROBILINOGEN Negative (NEGATIVE)
--- NOTE | 2020-06-12 15:15 | NUR ---
Pt in room 318 at this time. Post op vitals started. TR band w/14 mls of air to right wrist. Site w/o s/s complication. Denies needs at this time.
[2020-06-12] MEDS ORDERED: VESICARE 5MG5 MG PO (15:45)
--- NOTE | 2020-06-12 16:37 | NUR ---
VSS. RIGHT RADIAL SITE W/O SIGNS OF COMPLICATION. 5 MLS AIR RELEASED FROM TR BAND AT THIS TIME.
--- NOTE | 2020-06-12 17:57 | NUR ---
Remaining 4 mls removed from TR band at this time. Site remains free of s/s complication or bleeding. TR band left in place for now. VSS. Denies pain.
--- NOTE | 2020-06-12 19:20 | NUR ---
Patient assessed at this time. Alert and oriented x 4, and able to make needs known. Denies having pain and discomfort at this time. Peripheral IV to right AC with fluids running per orders. Site without redness, warmth, swelling, and pain. Denies having SOB and dsypnea. LS CTA. Respirations even and unlabored. HRR. Telemetry in place. Capillary refill less than 3 seconds. Non-tenting skin turgor. BSAx4. Abdomen soft and non-tender. No edema. Right radial heart cath site is without redness, warmth, swelling, and pain. Bandaid placed over site, with arm board in place. Voices no questions, needs, or concerns at this time. Resting in bed with call light within reach.
[2020-06-13 03:56] VITALS: BP 138/57; PULSE 72; TEMP 98.2
--- NOTE | 2020-06-13 05:44 | NUR ---
Patient has been resting in bed with call light within reach. Has denied having pain and discomfort this shift. Continues on oxygen at 2 L/min via NC. Denies having SOB and dsypnea. IV fluids continue per orders. MD aware of Lactic elevating. Voices no questions, needs, or concerns at this time.
--- NOTE | 2020-06-13 05:48 | NUR ---
Patient has been awake on and off during the night. Denies having pain and discomfort at this time. Arm board taken off, but continues to have bandaid in place. Voices no questions, needs, or concerns at this time. Resting in bed with call light within reach.
[2020-06-13 07:10] LABS: BASO % 0.2 % (0.0-2.0); EOS # 0.1 (0.0-0.7); EOS % 0.8 % (0-4.0); GRAN # 10.5 (1.4-6.5); GRAN % 75.7 % (42.2-75.2); HEMATOCRIT 43.6 % (37.0-47.0); HEMOGLOBIN 14.4 g/dl (12.5-16.0); LYMPH # 2.4 (1.2-3.4); LYMPH % 17.6 % (20.0-51.0); MEAN CELL VOLUME 94 fl (80.0-100.0); MEAN CORPUSCULAR HEMOGLOBIN 31 pg (27.0-31.0); MEAN CORPUSCULAR HGB CONC 33 g/dl (33.0-37.0); MEAN PLATELET VOLUME 11.2 fl (7.4-10.4); MONO # 0.7 (0.1-0.6); MONO % 5.3 % (1.7-9.3); PLATELET COUNT 218 K/mm3 (130-400); RED BLOOD COUNT 4.65 M/mm3 (4.10-5.30); REDCELL DISTRIBUTION WIDTH-CV 13.3 % (11.5-14.5)
[2020-06-13 07:22] LABS: CALCIUM 8.8 mg/dL (8.4-10.2); CREATININE, serum 0.66 (0.52-1.25); POTASSIUM 4.3 mmol/L (3.4-5.0)
--- NOTE | 2020-06-13 08:26 | NUR ---
Assessment completed, alert/oriented, vital sign stable, denies pain or discomfort, reports "feeling better overall", heart RRR/SR on tele, distal pulses are palapble, lungs CTA/ no resp.difficulty, right radial puncutre site looks good with NO sign of hematoma or complication, WBC down from yesterday/ afebrile, patient hoping to get discharged, will discuss plan of care with hospitalist
[2020-06-13] MEDS ORDERED: NAPROSYN 2250 MG/TAB PO (08:31)
[2020-06-13 08:39] VITALS: BP 141/60; PULSE 69; TEMP 98.6
--- NOTE | 2020-06-13 09:18 | NUR ---
Discharge instructions reviewed with the patient, instructed to follow up with Cards and PCP as scheduled, instructed to continue all previous home meds/ no changes or new meds, IV and tele removed, I personally escorted the patient out the door
[2020-11-14] MEDS ORDERED: BRINTELLIX10 (19:41)
[2020-11-19] MEDS ORDERED: DIFLUCAN 40M40 MG/ML PO (14:32)
[2020-11-19] MEDS ORDERED: NEURONTIN100 MG/CAP PO (14:34)
[2020-11-19] MEDS ORDERED: NORCO 325 MG-51 TAB PO (14:34)
[2020-11-19] MEDS ORDERED: AMOXICILLIN 8751 TAB PO (14:35)
[2020-11-27] MEDS ORDERED: BACTRIM DS 8001 TAB PO (21:25)
== END 2020-06-13 09:31 | disposition home or self-care (01) ==
LOC: COL.ER 08:36 → MEDICAL 09:24
PROVIDERS: Family Medicine; Physician Assistant; ADMIT Internal Medicine
DX: R07.89 Other chest pain (principal); I25.10 Atherosclerotic heart disease of native coronary artery without angina pectoris; D72.829 Elevated white blood cell count, unspecified; I24.9 Acute ischemic heart disease, unspecified; I21.4 Non-ST elevation (NSTEMI) myocardial infarction; I10 Essential (primary) hypertension; K21.9 Gastro-esophageal reflux disease without esophagitis; M79.7 Fibromyalgia; E78.5 Hyperlipidemia, unspecified; J45.909 Unspecified asthma, uncomplicated; F31.9 Bipolar disorder, unspecified; F17.210 Nicotine dependence, cigarettes, uncomplicated; Z91.048 Other nonmedicinal substance allergy status; Z79.899 Other long term (current) drug therapy; Z95.1 Presence of aortocoronary bypass graft; Z20.822 Contact with and (suspected) exposure to COVID-19; Z79.82 Long term (current) use of aspirin; Z90.710 Acquired absence of both cervix and uterus; Z98.51 Tubal ligation status; Z83.6 Family history of other diseases of the respiratory system
CPT/HCPCS: G0378; J1644; J2250; J3010; Q9967

== ENCOUNTER → 2021-01-19 | Outpatient (CLI) | payer BC ==
[~2021-01-19] MED LIST changes: +BACTRIM DS 8001 TAB PO; +BRINTELLIX10; +DIFLUCAN 40M40 MG/ML PO; +NEURONTIN100 MG/CAP PO; +VESICARE 5MG5 MG PO
[2021-01-19 17:23] LABS: BASO # 0.1 K/mm3 (0.0-0.2); BASO % 0.7 % (0.0-2.0); EOS # 0.3 K/mm3 (0.0-0.7); EOS % 2.4 % (0-4.0); GRAN % 62.7 % (42.2-75.2); HEMATOCRIT 42.7 % (37.0-47.0); HEMOGLOBIN 14.2 g/dl (12.5-16.0); LYMPH # 3.6 K/mm3 (1.2-3.4); MEAN CELL VOLUME 91 fl (80.0-100.0); MEAN CORPUSCULAR HEMOGLOBIN 30 pg (27.0-31.0); MEAN CORPUSCULAR HGB CONC 33 g/dl (33.0-37.0); MEAN PLATELET VOLUME 9.9 fl (7.4-10.4); MONO # 0.8 K/mm3 (0.1-0.6); PLATELET COUNT 277 K/mm3 (130-400); RED BLOOD COUNT 4.67 M/mm3 (4.10-5.30); REDCELL DISTRIBUTION WIDTH-CV 13.1 % (11.5-14.5)
== END ==
LOC: COL.LAB 16:39
PROVIDERS: Family Medicine
DX: R10.33 Periumbilical pain (principal)

== ENCOUNTER → 2021-06-26 | Outpatient (CLI) | payer BC ==
[2021-06-26 13:58] LABS: BASO # 0.1 K/mm3 (0.0-0.2); BASO % 0.8 % (0.0-2.0); EOS # 0.3 K/mm3 (0.0-0.7); EOS % 2.3 % (0.0-4.0); GRAN # 6.9 K/mm3 (1.4-6.5); GRAN % 64.6 % (42.2-75.2); HEMATOCRIT 43.4 % (37.0-47.0); HEMOGLOBIN 14.9 g/dl (12.5-16.0); LYMPH # 2.9 K/mm3 (1.2-3.4); LYMPH % 26.8 % (20.0-51.0); MEAN CELL VOLUME 91 fl (80.0-100.0); MEAN CORPUSCULAR HEMOGLOBIN 31 pg (27-31); MEAN CORPUSCULAR HGB CONC 34 g/dl (33.0-37.0); MEAN PLATELET VOLUME 9.6 fl (7.4-10.4); MONO # 0.6 K/mm3 (0.1-0.6); MONO % 5.2 % (1.7-9.3); PLATELET COUNT 285 K/mm3 (130-400); RED BLOOD COUNT 4.75 M/mm3 (4.10-5.30); REDCELL DISTRIBUTION WIDTH-CV 13.3 % (11.5-14.5)
[2021-06-26 14:08] LABS: ALBUMIN 3.3 gm/dL (3.5-5.0); BILIRUBIN,TOTAL 0.2 mg/dL (0.2-1.2); CALCIUM 8.5 mg/dL (8.4-10.2); CREATININE, serum 0.77 mg/dL (0.57-1.11); TOTAL PROTEIN 6.5 gm/dL (6.2-8.1)
== END ==
LOC: COL.RAD 11:30 → COL.LAB 13:02
PROVIDERS: Family Medicine
DX: K43.9 Ventral hernia without obstruction or gangrene (principal); N20.0 Calculus of kidney; Z90.49 Acquired absence of other specified parts of digestive tract; I25.10 Atherosclerotic heart disease of native coronary artery without angina pectoris; M47.819 Spondylosis without myelopathy or radiculopathy, site unspecified; K57.92 Diverticulitis of intestine, part unspecified, without perforation or abscess without bleeding; Z90.710 Acquired absence of both cervix and uterus
CPT/HCPCS: Q9967

== ENCOUNTER → 2021-07-13 | Outpatient (CLI) | payer BC | LOC: COL.RAD 05:58 | DX: R10.30 Lower abdominal pain, unspecified (principal); R14.0 Abdominal distension (gaseous) | CPT/HCPCS: Q9967 ==

== ENCOUNTER 2021-11-18 14:22 | Outpatient (RCR) | payer OTHER | END 2021-12-02 | disposition home or self-care (01) | LOC: WSOH | DX: S16.1XXA Strain of muscle, fascia and tendon at neck level, initial encounter (principal); S57.81XA Crushing injury of right forearm, initial encounter; Y04.1XXA Assault by human bite, initial encounter; Y99.0 Civilian activity done for income or pay; I34.0 Nonrheumatic mitral (valve) insufficiency ==

== ENCOUNTER 2022-07-06 13:23 | Observation (INO) | payer BC ==
[2022-07-06] VITALS (9 sets, daily range): BP systolic 94–134; BP diastolic 53–81; PULSE 69–97; TEMP 97
[~2022-07-06] VITALS: Ht 160 cm; Wt 102.0 kg
[2022-07-06] MEDS ORDERED: NORCO 325 MG-51 TAB PO ×2 (14:23)
[2022-07-06 14:28] LABS: BASO # 0.1 K/mm3 (0.0-0.2); BASO % 0.8 % (0.0-2.0); EOS # 0.3 K/mm3 (0.0-0.7); EOS % 2.8 % (0.0-4.0); GRAN # 6.5 K/mm3 (1.4-6.5); GRAN % 58.9 % (42.2-75.2); HEMATOCRIT 46.8 % (37.0-47.0); HEMOGLOBIN 15.9 g/dl (12.5-16.0); LYMPH # 3.5 K/mm3 (1.2-3.4); LYMPH % 31.4 % (20.0-51.0); MEAN CELL VOLUME 89 fl (80.0-100.0); MEAN CORPUSCULAR HEMOGLOBIN 30 pg (27-31); MEAN CORPUSCULAR HGB CONC 34 g/dl (33.0-37.0); MONO # 0.6 K/mm3 (0.1-0.6); MONO % 5.8 % (1.7-9.3); PLATELET COUNT 235 K/mm3 (130-400); RED BLOOD COUNT 5.29 M/mm3 (4.10-5.30); REDCELL DISTRIBUTION WIDTH-CV 13.9 % (11.5-14.5)
[2022-07-06 14:45] LABS: CALCIUM 8.6 mg/dL (8.4-10.2); CREATININE, serum 0.71 mg/dL (0.57-1.11); POTASSIUM 4.2 mmol/L (3.5-4.5)
[2022-07-06] MEDS ORDERED: PRILOTC PO (14:59)
[2022-07-06] MEDS ORDERED: FLEXERIL 1010 MG/TAB PO ×2 (14:59→15:01)
[2022-07-06] MEDS ORDERED: LIPITOR 40MG TA40 MG PO (14:59)
[2022-07-06] MEDS ORDERED: ABILIFY PO (14:59)
[2022-07-06] MEDS ORDERED: VENTOLIN0.09 MG IH (15:00)
[2022-07-06] MEDS ORDERED: KLONOPIN 0.5MG0.5 MG PO (15:00)
[2022-07-06] MEDS ORDERED: TOPROL XL 50MG50 MG PO (15:00)
[2022-07-06] MEDS ORDERED: LYRICA 75MG CAP75 MG PO (15:00)
[2022-07-06] MEDS ORDERED: VESICARE 5MG5 MG PO (15:01)
[2022-07-06] MEDS ORDERED: PRINIVIL20 MG PO (15:01)
--- NOTE | 2022-07-06 18:57 | NUR ---
PATIENT ARRIVED FROM PACU, POST OP VITALS INITIATED, VITAL SIGNS STABLE. PATIENT AWAKE AND ALERT, DROWSY AT THIS TIME. PATIENT STATED PAIN IS A 1-2 OUT OF 10 AT REST. ABD BINDER IN PLACE, SHAHRIAR DRAIN PATENT. PATIENT GIVEN CALL LIGHT, ICE WATER AND EMESIS BASIN. FAMILY MEMBER AT BEDSIDE. WILL INFORM NIGHT RN.
--- NOTE | 2022-07-06 19:52 | NUR ---
Patient assessed at this time, see shift assessment, reports pain at 4/10, scheduled meds given, denies nausea, up to the bathroom and voided, with abdominal binder CDI, with SHAHRIAR drain draining serosanguinous fluid, given jello and tolerated it, denies further needs, call light and personal items within reach, will continue to monitor.
--- NOTE | 2022-07-06 22:43 | NUR ---
Patient sounded wheezy, denies short of air, oxygen at lower 90's, informed RT Leslee.
[2022-07-07] VITALS (8 sets, daily range): BP systolic 102–136; BP diastolic 45–66; PULSE 48–92; TEMP 97.5–98.4
--- NOTE | 2022-07-07 04:34 | NUR ---
Patient complained of pain on her abdomen, PS of 8/10 upon movement and 5/10 when laying still, [place] given as ordered PRN, will continue to monitor.
[2022-07-07 07:14] LABS: CALCIUM 8.2 mg/dL (8.4-10.2); CREATININE, serum 0.91 mg/dL (0.57-1.11); HEMOGLOBIN 15.1 g/dl (12.5-16.0); MAGNESIUM 1.7 mg/dL (1.6-2.6); MEAN CELL VOLUME 91 fl (80.0-100.0); MEAN CORPUSCULAR HEMOGLOBIN 31 pg (27-31); MEAN CORPUSCULAR HGB CONC 34 g/dl (33.0-37.0); MEAN PLATELET VOLUME 10.4 fl (7.4-10.4); PHOSPHOROUS 3.2 mg/dL (2.3-4.7); PLATELET COUNT 271 K/mm3 (130-400); RED BLOOD COUNT 4.95 M/mm3 (4.10-5.30); REDCELL DISTRIBUTION WIDTH-CV 14.1 % (11.5-14.5)
[2022-07-07 07:49] LABS: BAND 3 % (0-10); LYMPHOCYTE 3 % (20.0-51.0); NEUTROPHILS 92 % (42.0-75.2)
[2022-07-07 07:50] LABS: PLATELET ESTIMATE NORMAL (NORMAL)
--- NOTE | 2022-07-07 10:18 | NUR ---
Initial visit; Patient thanked [employer] for looking in on her and offering God's blessings. [employer] wished her well.
--- NOTE | 2022-07-07 10:25 | NUR ---
PT RESTING IN BED. DENIES NEEDS AT THIS TIME. AM MEDS GIVEN ORDERED. MID LINE INCISION CDI.
--- NOTE | 2022-07-07 19:56 | NUR ---
Patient doing better, head to toe assessment done, see shift assessment, rates her pain at 2/10, denies the need for pain meds at this time, INT to LH, with abdominal binder in place, SHAHRIAR drain site CDI, on oxygen at 2LPM via nasal prong, encouraged to use the IS during waking hours and explained the importance of it, denies further needs, call light and personal items within reach.
--- NOTE | 2022-07-08 00:43 | NUR ---
Patient up to the bathroom, scheduled tylenol given.
[2022-07-08 03:50] VITALS: BP 129/62; PULSE 73; TEMP 98
--- NOTE | 2022-07-08 06:32 | NUR ---
Patient up to the bathroom, denies the need for pain meds at this time.
[2022-07-08 07:06] VITALS: BP 111/85; PULSE 70; TEMP 97.6
[2022-07-08 07:17] LABS: BASO % 0.2 % (0.0-2.0); EOS # 0.1 K/mm3 (0.0-0.7); EOS % 0.4 % (0.0-4.0); GRAN # 12.3 K/mm3 (1.4-6.5); GRAN % 76.4 % (42.2-75.2); HEMATOCRIT 40.7 % (37.0-47.0); HEMOGLOBIN 13.4 g/dl (12.5-16.0); LYMPH # 2.7 K/mm3 (1.2-3.4); LYMPH % 16.8 % (20.0-51.0); MEAN CELL VOLUME 93 fl (80.0-100.0); MEAN CORPUSCULAR HEMOGLOBIN 31 pg (27-31); MEAN CORPUSCULAR HGB CONC 33 g/dl (33.0-37.0); MEAN PLATELET VOLUME 10.7 fl (7.4-10.4); MONO # 0.9 K/mm3 (0.1-0.6); MONO % 5.8 % (1.7-9.3); PLATELET COUNT 219 K/mm3 (130-400); RED BLOOD COUNT 4.39 M/mm3 (4.10-5.30); REDCELL DISTRIBUTION WIDTH-CV 14.2 % (11.5-14.5)
--- NOTE | 2022-07-08 07:20 | NUR ---
PATIENT AWAKE IN BED, C/O 6/10 CRAMPING PAIN IN THE LOWER ABDOMIN. PATIENT IS A&O X4 AND AFEBRILE. PATIENT REPORTS NO BOWEL MOVEMENT SINCE SURGEY ON 07/06/22 BUT IS PASSING GAS. BOWEL SOUNDS AUDIBLE IN ALL 4 QUADRANTS. INSICION IS C/D/I WITH SURGICAL GLUE AND AN ABDOMINAL BINDER DRESSING. SHAHRIAR DRAIN IS INTACT WITH MINIMAL OUTPUT THIS MORNING. IS PERFORMED THIS MORNING DURING SHIFT ASSESSMENT. PATIENT DENIES ANY FURTHER NEEDS AT THIS TIME.
[2022-07-08 07:32] LABS: ALBUMIN 2.8 gm/dL (3.5-5.0); BILIRUBIN,TOTAL 0.3 mg/dL (0.2-1.2); CALCIUM 8.3 mg/dL (8.4-10.2); CREATININE, serum 0.77 mg/dL (0.57-1.11); POTASSIUM 4.2 mmol/L (3.5-4.5); TOTAL PROTEIN 5.9 gm/dL (6.2-8.1)
[2022-07-08 11:25] VITALS: BP 90/61; PULSE 68; TEMP 97.9
[2022-07-08 15:50] VITALS: BP 119/81; PULSE 65; TEMP 97.7
[2022-07-08] MEDS ORDERED: CELEBREX 200MG200 MG PO (16:22)
[2022-07-08] MEDS ORDERED: ROXICODONE 55 MG/TAB PO (16:22)
--- NOTE | 2022-07-08 16:44 | NUR ---
SW met with patient to complete intake. Patient reports that she lives at home with her Alexey ([phone]) in [place]. Patient is independent with her ADL's and IADl's. She has no DME needs or home oxygen needs. PCP is and she utilizes [facility] for prescriptions. 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 She is planning on returning home once medically ready. Discharge plan: Home
--- NOTE | 2022-07-08 17:11 | NUR ---
DISCHARGE INSTRUCTION REVIEWED WITH PT. QUESTIONS SOLICITED AND ANSWERED. PT LEFT UNIT PER WHEEL CHAIR WITH STAFF.
== END 2022-07-08 17:43 | disposition home or self-care (01) ==
LOC: SDCO 13:23 → SURG 19:24 → SDCO 07-07 18:07 → SURG 07-07 18:08
PROVIDERS: ADMIT Surgery
DX: K43.9 Ventral hernia without obstruction or gangrene (principal); K43.2 Incisional hernia without obstruction or gangrene; E66.9 Obesity, unspecified; Z68.39 Body mass index [BMI] 39.0-39.9, adult; F17.210 Nicotine dependence, cigarettes, uncomplicated; E87.5 Hyperkalemia; K21.9 Gastro-esophageal reflux disease without esophagitis
CPT/HCPCS: OP; A9284; C1781; G0378; J0690; J1100; J1650; J2270; J2405; J2704; J3010; J7120

== ENCOUNTER 2023-02-21 12:58 | Outpatient (RCR) | payer OTHER ==
[2023-02-18 15:56] LABS: BASO # 0.1 K/mm3 (0.0-0.2); BASO % 0.8 % (0.0-2.0); EOS # 0.3 K/mm3 (0.0-0.7); EOS % 3.2 % (0.0-4.0); GRAN # 5.4 K/mm3 (1.4-6.5); GRAN % 56.4 % (42.2-75.2); HEMATOCRIT 41.6 % (37.0-47.0); HEMOGLOBIN 14.2 g/dl (12.5-16.0); LYMPH # 3.2 K/mm3 (1.2-3.4); LYMPH % 33.4 % (20.0-51.0); MEAN CELL VOLUME 89 fl (80.0-100.0); MEAN CORPUSCULAR HEMOGLOBIN 31 pg (27-31); MEAN CORPUSCULAR HGB CONC 34 g/dl (33.0-37.0); MEAN PLATELET VOLUME 10.2 fl (7.4-10.4); MONO # 0.6 K/mm3 (0.1-0.6); MONO % 5.9 % (1.7-9.3); PLATELET COUNT 219 K/mm3 (130-400); RED BLOOD COUNT 4.66 M/mm3 (4.10-5.30); REDCELL DISTRIBUTION WIDTH-CV 13.3 % (11.5-14.5)
[2023-02-18 16:09] LABS: ALBUMIN 3.4 gm/dL (3.5-5.0); BILIRUBIN,TOTAL 0.3 mg/dL (0.2-1.2); CALCIUM 8.8 mg/dL (8.4-10.2); CREATININE, serum 0.84 mg/dL (0.57-1.11); POTASSIUM 4.5 mmol/L (3.5-4.5); TOTAL PROTEIN 6.8 gm/dL (6.2-8.1)
[2023-02-18 16:21] LABS: PH 7.5 (5.0-8.5); URINE APPEARANCE Clear (CLEAR/HAZY); URINE COLOR Yellow (YELLOW)
[2023-02-18 16:22] LABS: SQUAMOUS EPITHELIAL 0-2 /hpf (0-10); URINE BACTERIA Rare /hpf (NONE SEEN); URINE BLOOD TRACE-INTACT (NEGATIVE); URINE GLUCOSE Negative (NEGATIVE); URINE KETONE Negative (NEGATIVE); URINE NITRATE Negative (NEGATIVE); URINE PROTEIN(semi-quant) Negative (NEGATIVE); URINE RBC 0-2 /hpf (0-2); URINE UROBILINOGEN 0.2 E.U/dL (0.2-1.0); URINE WBC 0-2 /hpf (0-2)
[2023-02-18 17:18] LABS: COLLECTION METHOD CLEAN CATCH
[~2023-02-21 12:58] MED LIST changes: +ABILIFY PO; +CELEBREX 200MG200 MG PO; +LYRICA 75MG CAP75 MG PO; +PRILOTC PO; +PRINIVIL20 MG PO; +ROXICODONE 55 MG/TAB PO; +TOPROL XL 50MG50 MG PO; +VENTOLIN0.09 MG IH
== END 2023-03-03 | disposition home or self-care (01) ==
LOC: WSOH
PROVIDERS: Family Medicine
DX: R10.30 Lower abdominal pain, unspecified (principal); I11.9 Hypertensive heart disease without heart failure; J45.909 Unspecified asthma, uncomplicated; M79.7 Fibromyalgia; F32.A Depression, unspecified; Y99.0 Civilian activity done for income or pay

== ENCOUNTER 2023-03-08 13:44 | Outpatient (RCR) | payer OTHER | END 2023-04-03 | disposition home or self-care (01) | LOC: WSOH | DX: R10.30 Lower abdominal pain, unspecified (principal); I11.9 Hypertensive heart disease without heart failure; M79.7 Fibromyalgia; J45.909 Unspecified asthma, uncomplicated; F31.9 Bipolar disorder, unspecified; Y99.0 Civilian activity done for income or pay ==

== ENCOUNTER 2023-05-05 10:24 | Emergency (ER) | payer BC ==
[~2023-05-05] VITALS: Ht 160 cm; Wt 106.4 kg
[2023-05-05 10:29] VITALS: TEMP 97.8
[2023-05-05 11:03] LABS: BASO # 0.1 K/mm3 (0.0-0.2); EOS # 0.3 K/mm3 (0.0-0.7); EOS % 3.4 % (0.0-4.0); GRAN # 4.4 K/mm3 (1.4-6.5); GRAN % 49.6 % (42.2-75.2); HEMOGLOBIN 13.6 g/dl (12.5-16.0); LYMPH # 3.4 K/mm3 (1.2-3.4); LYMPH % 37.9 % (20.0-51.0); MEAN CELL VOLUME 93 fl (80.0-100.0); MEAN CORPUSCULAR HEMOGLOBIN 30 pg (27-31); MEAN CORPUSCULAR HGB CONC 32 g/dl (33.0-37.0); MONO # 0.7 K/mm3 (0.1-0.6); PLATELET COUNT 233 K/mm3 (130-400); RED BLOOD COUNT 4.51 M/mm3 (4.10-5.30); REDCELL DISTRIBUTION WIDTH-CV 12.7 % (11.5-14.5)
[2023-05-05 11:21] LABS: ALBUMIN 3.3 gm/dL (3.5-5.0); BILIRUBIN,TOTAL 0.3 mg/dL (0.2-1.2); CALCIUM 8.9 mg/dL (8.4-10.2); CREATININE, serum 0.84 mg/dL (0.57-1.11); POTASSIUM 4.3 mmol/L (3.5-4.5); TOTAL PROTEIN 6.5 gm/dL (6.2-8.1)
[2023-05-05 11:28] LABS: TROPONIN-I 0.018 ng/mL (0.00-0.033)
[2023-05-05] MEDS ORDERED: Morphine 4 MG/ML VIAL IV ONE (12:15)
[2023-05-05] MEDS ORDERED: Ondansetron 4 MG/2 ML VIAL IV ONE (12:15)
[2023-05-05] MEDS ORDERED: NORCO 325 MG-51 TAB PO (14:15)
[2023-05-05 14:29] VITALS: BP 151/89; PULSE 61
== END 2023-05-05 14:31 | disposition home or self-care (01) ==
LOC: COL.ER 10:24
PROVIDERS: Personal Emergency Response Attendant
DX: R07.2 Precordial pain (principal); Z87.891 Personal history of nicotine dependence
CPT/HCPCS: J2270; J2405

== ENCOUNTER 2023-07-14 09:07 | Emergency (ER) | payer BC ==
[~2023-07-14] VITALS: Ht 160 cm; Wt 102.7 kg
[2023-07-14 09:15] VITALS: TEMP 97.6
[2023-07-14] MEDS ORDERED: Ondansetron 4 MG/2 ML VIAL IV ONE (10:00)
[2023-07-14 10:42] LABS: BASO # 0.1 K/mm3 (0.0-0.2); BASO % 0.8 % (0.0-2.0); EOS # 0.3 K/mm3 (0.0-0.7); EOS % 3.6 % (0.0-4.0); GRAN # 4.8 K/mm3 (1.4-6.5); HEMATOCRIT 42.2 % (37.0-47.0); LYMPH # 2.5 K/mm3 (1.2-3.4); LYMPH % 30.6 % (20.0-51.0); MEAN CELL VOLUME 92 fl (80.0-100.0); MEAN CORPUSCULAR HEMOGLOBIN 31 pg (27-31); MEAN CORPUSCULAR HGB CONC 33 g/dl (33.0-37.0); MEAN PLATELET VOLUME 9.7 fl (7.4-10.4); MONO # 0.6 K/mm3 (0.1-0.6); MONO % 6.9 % (1.7-9.3); PLATELET COUNT 195 K/mm3 (130-400); RED BLOOD COUNT 4.57 M/mm3 (4.10-5.30); REDCELL DISTRIBUTION WIDTH-CV 12.7 % (11.5-14.5)
[2023-07-14 10:45] LABS: COLLECTION METHOD CLEAN CATCH
[2023-07-14 10:49] LABS: PH 6.5 (5.0-8.5); URINE APPEARANCE CLEAR (CLEAR/HAZY); URINE BLOOD NEGATIVE (NEGATIVE); URINE COLOR YELLOW (YELLOW); URINE GLUCOSE NEGATIVE (NEGATIVE); URINE KETONE NEGATIVE (NEGATIVE); URINE NITRATE NEGATIVE (NEGATIVE); URINE PROTEIN(semi-quant) NEGATIVE (NEGATIVE); URINE UROBILINOGEN 0.2 E.U/dL (0.2-1.0)
[2023-07-14 10:55] LABS: ALBUMIN 3.4 g/dL (3.5-5.0); BILIRUBIN,TOTAL 0.4 mg/dL (0.2-1.2); C-REACTIVE PROTEIN 1.31 mg/dL (0.00-0.50); CREATININE, serum 0.82 mg/dL (0.57-1.11); POTASSIUM 4.6 mEq/L (3.5-4.5); TOTAL PROTEIN 6.4 g/dl (6.2-8.1)
[2023-07-14] MEDS ORDERED: BONINE25 MG PO (12:22)
[2023-07-14 12:36] VITALS: BP 120/89; PULSE 66
== END 2023-07-14 12:40 | disposition home or self-care (01) ==
LOC: COL.ER 09:07
PROVIDERS: Family Medicine
DX: R42 Dizziness and giddiness (principal); R14.0 Abdominal distension (gaseous); Z87.19 Personal history of other diseases of the digestive system
CPT/HCPCS: J2405